=== PATIENT | female | born 1980 | race African-American/Black ===

== ENCOUNTER 2019-02-18 22:45 | Emergency (ER) | payer SELFPAY ==
[2019-02-18] MEDS ORDERED: Aspirin Chewable 81 MG TAB ONE (22:57)
[2019-02-18 23:18] LABS: #Basophils 0.1 thou/uL (0.0-0.2); #Eosinphils 0.3 thou/uL (0.0-0.7); #Monocytes 0.6 thou/uL (0.11-0.59); #Neutrophils 3.2 thou/uL (1.40-6.50); %Basophils 1.1 % (0.0-1.0); %Eosinophils 4.8 % (0.0-10.0); %Lymphocytes 32.6 % (21.0-51.0); %Neutrophils 51.5 % (42.0-75.0); Hemoglobin 9.2 g/dL (12.0-16.0); Mean Corpuscular Hemoglobin 28.1 pg (27.0-31.0); Mean Corpuscular Volume 85.2 fL (78.0-98.0); Mean Platelet Volume 8.8 fL (7.4-10.4); Platelet Count 229 thou/uL (130-400); RBC Distribution Width 15.7 % (11.5-14.5); Red Blood Cell (RBC) Count 3.26 mill/uL (4.20-5.40); White Blood Cell (WBC) Count 6.2 thou/uL (4.8-10.8)
--- NOTE | 2019-02-18 23:29 | RAD ---
EXAM: Chest 2 views: HISTORY: Chest pain COMPARISON: 06/02/2014 FINDINGS: There is a normal-sized cardiomediastinal silhouette. There is no evidence of consolidation, mass, or pleural effusion. The bones are unremarkable. IMPRESSION: No evidence of acute cardiopulmonary disease
[2019-02-18 23:43] LABS: ALT (SGPT) 7 U/L (8-55); AST (SGOT) 12 U/L (5-34); Albumin 4.3 g/dL (3.5-5.0); Alkaline Phosphatase 49 U/L (40-150); Anion Gap 14 mmol/L (10-20); BUN (Urea Nitrogen) 9 mg/dL (7.0-18.7); Bilirubin, Total 0.3 mg/dL (0.2-1.2); CKMB 0.4 ng/mL (0-6.6); Calc. Creatinine Clearance 0 mL/min (70-130); Calcium 9.4 mg/dL (7.8-10.44); Carbon Dioxide 26 mmol/L (22-29); Chloride 104 mmol/L (98-107); Estimated GFR-MDRD 82; Globulin 3.3 g/dL (2.4-3.5); Glucose 111 mg/dL (70-105); Protein, Total 7.6 g/dL (6.0-8.3); Sodium 140 mmol/L (136-145)
== END 2019-02-18 23:59 | disposition home or self-care (01) ==
LOC: NAV ERS 22:45
DX: R07.9 Chest pain, unspecified (principal); I48.91 Unspecified atrial fibrillation; I25.10 Atherosclerotic heart disease of native coronary artery without angina pectoris
CPT/HCPCS: 36415; 71046; 80053; 82553; 84484; 85025; 93005

== ENCOUNTER 2022-07-09 10:56 | Emergency (ER) | payer BC ==
[2022-07-09] MEDS ORDERED: Amoxicillin/Potassium Clav 875 MG TAB ONE (12:25)
[2022-07-09] MEDS ORDERED: Ibuprofen 200 MG TAB ONE (12:33)
== END 2022-07-09 12:40 | disposition home or self-care (01) ==
LOC: NAV ERS 10:56
DX: J02.9 Acute pharyngitis, unspecified (principal); I25.10 Atherosclerotic heart disease of native coronary artery without angina pectoris
CPT/HCPCS: 87081; 87430

== ENCOUNTER 2024-05-19 17:28 | Emergency (ER) | payer BC, OTHER, SELFPAY ==
[2024-05-19] MEDS ORDERED: Acetaminophen 500 MG TAB ONE (17:47)
== END 2024-05-19 18:44 | disposition home or self-care (01) ==
LOC: NAV ERS 17:28
DX: J11.1 Influenza due to unidentified influenza virus with other respiratory manifestations (principal); M79.10 Myalgia, unspecified site
CPT/HCPCS: 87428; 99283